=== PATIENT | male | born 1945 ===

== ENCOUNTER 2019-04-10 12:35 | Inpatient (IN) | payer OTHER ==
[~2019-04-10] VITALS: Ht 162.6 cm; Wt 53.5 kg
[2019-04-10] MEDS ORDERED: TENORMIN25 MG PO (13:06)
[2019-04-10] MEDS ORDERED: GLIMEPIRIDE4 MG (13:06)
[2019-04-10] MEDS ORDERED: LIPITOR40 M1 PO (13:07)
== END 2019-04-18 10:11 | disposition home or self-care (01) | DRG 292 ==
LOC: ER 12:35 → MEDI 15:20
PROVIDERS: ADMIT Internal Medicine Cardiovascular Disease
PROC: B246ZZZ Ultrasonography of Right and Left Heart (ICD-10-PCS; 2019-04-10)
PROC: 4A12X4Z Monitoring of Cardiac Electrical Activity, External Approach (ICD-10-PCS; 2019-04-10)
PROC: 4A033R1 Measurement of Arterial Saturation, Peripheral, Percutaneous Approach (ICD-10-PCS; 2019-04-10)
PROC: BB24ZZZ Computerized Tomography (CT Scan) of Bilateral Lungs (ICD-10-PCS; 2019-04-14)
PROC: 0W993ZZ Drainage of Right Pleural Cavity, Percutaneous Approach (ICD-10-PCS; principal; 2019-04-15)
DX: I11.0 Hypertensive heart disease with heart failure (principal); J90 Pleural effusion, not elsewhere classified; J98.11 Atelectasis; R18.8 Other ascites; I31.3 Pericardial effusion (noninflammatory); I50.43 Acute on chronic combined systolic (congestive) and diastolic (congestive) heart failure; I08.3 Combined rheumatic disorders of mitral, aortic and tricuspid valves; I42.0 Dilated cardiomyopathy; I70.0 Atherosclerosis of aorta; E11.9 Type 2 diabetes mellitus without complications; Z79.4 Long term (current) use of insulin

== ENCOUNTER 2019-10-30 15:38 | Emergency (ER) | payer OTHER ==
[~2019-10-30] VITALS: Ht 162.6 cm; Wt 68.0 kg
[~2019-10-30 15:38] MED LIST: GLIMEPIRIDE4 MG; LIPITOR40 M1 PO; TENORMIN25 MG PO
[2019-10-30] MEDS ORDERED: LEVOTHYROXINE25 MCG (15:48)
== END 2019-10-30 19:27 | disposition home or self-care (01) ==
LOC: ER 15:38
DX: E11.649 Type 2 diabetes mellitus with hypoglycemia without coma (principal); R60.0 Localized edema; J90 Pleural effusion, not elsewhere classified; Z03.818 Encounter for observation for suspected exposure to other biological agents ruled out; Z79.84 Long term (current) use of oral hypoglycemic drugs